=== PATIENT | female | born 1990 | race Caucasian/White ===

== ENCOUNTER 2021-05-18 09:19 | Emergency (ER) | payer OTHER ==
[2021-05-18] MEDS: Ondansetron 4 MG Tab.DIS PO ONE (10:00)
[2021-05-18] MEDS: Sodium Chloride 0.9% 1,000 ML IV ONE (10:03)
[2021-05-18] MEDS: Ondansetron 4 MG Tab.DIS ONE (10:03)
--- NOTE | 2021-05-18 10:10 | EDM.PDOC ---
ED HPI GENERAL MEDICAL PROBLEM - General Chief Complaint: Cardiovascular Problem Stated Complaint: CHEST HURT Time Seen by Provider: 05/18/21 09:45 Source of Information: Reports: Patient History Limitations: Reports: No Limitations - History of Present Illness INITIAL COMMENTS - FREE TEXT/NARRATIVE: 31-year-old female presents to the ED complaining of generalized illness/sinus infection with chest pain. Patient has been sick since Thursday running a fever nausea vomiting, fatigue. Patient became concerned when this morning she developed an acute dull substernal 2/10 chest discomfort. This started approximately 0600, and patient was concerned because she had hypertension at her doctor's appointment when she was diagnosed with sinus infection. Patient has been on amoxicillin for same. Positive for: Decreased oral intake, general malaise, headache, abdominal bloating on evening. Negative for: Shortness of breath, trauma, constipation/diarrhea, black tarry stool, blood on stool, changes in urine color smell frequency, swollen painful joints, difficulty swallowing, blurred vision, family history of cardiac at a young age. Middle Chest Pain Score (Numeric/FACES): 2 - Related Data Allergies Allergy/AdvReac Type Severity Reaction Status Date / Time No Known Allergies Allergy Verified 05/18/21 09:38 Home Meds: Home Meds Ondansetron [Zofran ODT] 4 mg PO Q6H PRN #5 tab.dis 05/18/21 [Rx] ED ROS GENERAL - Review of Systems Review Of Systems: Comprehensive ROS is negative, except as noted in HPI. ED EXAM, GENERAL - Physical Exam Exam: See Below Free Text/Narrative:: ABC intact. No apparent distress. No obvious trauma. Speaking in full sentences. Alert and oriented x3, GCS 456. Exam Limited By: No Limitations General Appearance: Alert, WD/WN, No Apparent Distress Eye Exam: Bilateral Eye: EOMI, PERRL Ears: Normal External Exam, Hearing Grossly Normal Nose: Normal Inspection, Normal Mucosa, No Blood Throat/Mouth: Normal Inspection, Normal Lips, Normal Teeth, Normal Gums, Normal Oropharynx, Normal Voice, No Airway Compromise Head: Atraumatic, Normocephalic Neck: Normal Inspection, Supple, Non-Tender, Full Range of Motion Respiratory/Chest: No Respiratory Distress, Lungs Clear, Normal Breath Sounds, No Accessory Muscle Use, Chest Non-Tender Cardiovascular: Normal Peripheral Pulses, Regular Rate, Rhythm, No Edema, No Gallop, No JVD, No Murmur, No Rub GI/Abdominal: Soft, Non-Tender, No Distention Back Exam: Normal Inspection, Full Range of Motion. No: CVA Tenderness (R), CVA Tenderness (L) Extremities: Normal Inspection, Normal Range of Motion, Non-Tender, Normal Capillary Refill, No Pedal Edema Neurological: Alert, Oriented, Normal Cognition Psychiatric: Normal Affect, Normal Mood Skin Exam: Warm, Dry, Intact, Normal Color, No Rash Lymphatic: No Adenopathy #1 Interpretation EKG Date: 05/18/21 (Normal sinus rhythm without ectopy, no ST elevation or depression, inverted T waves in V1, this is not a STEMI) Course - Vital Signs Last Recorded V/S: Last Vital Signs Temp 97.2 F 05/18/21 09:28 Pulse 103 H 05/18/21 09:28 Resp 18 05/18/21 09:28 BP 137/89 05/18/21 09:28 Pulse Ox 98 05/18/21 09:28 - Orders/Labs/Meds Orders: Active Orders 24 hr Category Date Time Status BASIC METABOLIC PANEL,BMP [CHEM] Stat Lab 05/18/21 09:50 Received TROPONIN I [CHEM] Stat Lab 05/18/21 09:50 Received Sodium Chloride 0.9% [Normal Saline] 1,000 ml Med 05/18/21 09:39 Active IV .BOLUS Medication Orders Sodium Chloride (Normal Saline) 1,000 mls @ 999 mls/hr IV .BOLUS ONE Stop: 05/18/21 10:39 Last Admin: 05/18/21 10:03 Dose: 999 mls/hr Documented by: JEANNA Labs: Laboratory Tests 05/18/21 Range/Units 09:50 WBC 6.8 (4.0-11.0) K/uL RBC 4.69 (3.80-5.80) M/uL Hgb 14.1 (11.5-16.5) g/dL Hct 40.2 (37.0-47.0) % MCV 86 (76-96) fL MCH 30.1 (27.0-32.0) pg MCHC 35.1 H (31.0-35.0) g/dL RDW 12.9 (11.0-16.0) % Plt Count 221 (150-500) K/uL MPV 9.4 (6.0-10.0) fL Neut % (Auto) 73.9 H (45.0-70.0) % Lymph % (Auto) 17.6 L (20.0-40.0) % [place] % (Auto) 8.1 (3.0-10.0) % Eos % (Auto) 0.3 L (1.0-5.0) % Baso % (Auto) 0.1 (0.0-0.5) % Neut # (Auto) 5.01 (2.00-7.50) K/uL Lymph # (Auto) 1.19 L (1.50-4.00) K/uL [place] # (Auto) 0.55 (0.20-0.80) K/uL Eos # (Auto) 0.02 L (0.04-0.40) K/uL Baso # (Auto) 0.01 L (0.02-0.10) K/uL Meds: Medications Generic Name Dose Route Start Last Admin Trade Name Freq PRN Reason Stop Dose Admin Sodium Chloride 1,000 mls @ 999 mls/hr 05/18/21 09:39 05/18/21 10:03 Normal Saline IV 05/18/21 10:39 999 mls/hr .BOLUS ONE Administration Discontinued Medications Generic Name Dose Route Start Last Admin Trade Name Freq PRN Reason Stop Dose Admin Ondansetron HCl 4 mg 05/18/21 09:59 05/18/21 10:00 Ondansetron 4 Mg Tab.Dis PO 05/18/21 10:00 4 mg ONETIME ONE Administration Ondansetron HCl Confirm 05/18/21 10:10 05/18/21 10:03 Ondansetron 4 Mg Tab.Dis Administered 05/18/21 10:11 Not Given Dose 4 mg .ROUTE .STK-MED ONE Departure - Departure Time of Disposition: 11:14 Disposition: Home, Self-Care 01 Condition: Good Clinical Impression: Viral illness Chest pain Qualifiers: Chest pain type: other chest pain Qualified Code(s): R07.89 - Other chest pain; R07.8 - Other chest pain Vomiting Qualifiers: Vomiting type: unspecified Nausea presence: with nausea Qualified Code(s): R 11.2 - Nausea with vomiting, unspecified Referrals: PCP,None [Primary Care Provider] - Sepsis Event Note (ED) - Evaluation Sepsis Screening Result: No Definite Risk - Focused Exam Vital Signs: Vital Signs Temp Pulse Resp BP Pulse Ox 05/18/21 09:28 97.2 F 103 H 18 137/89 98 - My Orders Last 24 Hours: My Active Orders 05/18/21 09:39 Sodium Chloride 0.9% [Normal Saline] 1,000 ml IV .BOLUS 05/18/21 09:50 BASIC METABOLIC PANEL,BMP [CHEM] Stat TROPONIN I [CHEM] Stat - Assessment/Plan Last 24 Hours: My Active Orders 05/18/21 09:39 Sodium Chloride 0.9% [Normal Saline] 1,000 ml IV .BOLUS 05/18/21 09:50 BASIC METABOLIC PANEL,BMP [CHEM] Stat TROPONIN I [CHEM] Stat Assessment:: 1. Chest pain 2. Sinusitis 3. Fatigue 4. Headache 5. Nausea vomiting Plan: 1. Chest pain-EKG, CBC, BMP, troponins (-) 2. Sinusitiscontinue antibiotic therapy 3. Fatigue-1000 cc normal saline, influenza screen 4. Headache-Tylenol, influenza screen 5. Nausea vomiting-Zofran 4 mg ODT, influenza screen, ambulatory order of Zofran from [facility] 31-year-old female who presents for evaluation of chest pain secondary to generalized illness since Thursday. The work-up in the ED is thus far negative. Differential diagnosis for chest pain is broad and includes life-threatening etiologies such as acute coronary syndrome, myocardial infarction, pulmonary embolism, acute aortic dissection, amongst others. Other causes may include pneumonia, pneumothorax, chest wall source, pericarditis, pleurisy, esophageal spasm. No serious etiologies for the chest pain were detected today during the visit. Work-up included troponin, CBC, EKG. Close follow-up with primary care is indicated should the pain continue, as further work-up may be performed; this was made clear to the patient who understands. No serial troponins due to lack of cardiac history and no familial history of early onset cardiac disease. No chest x-ray was done due to clear lung sounds, no shortness of breath. No D-dimer patient PERCs out. Influenza screen was negative, patient awaiting results of a Covid test from should have results today. -Patient and/or office services representative understood and agreed to treatment plan. -All questions were answered to the patient's satisfaction. -Patient is discharged in stable condition. Patient to return to the ED if symptoms increase/return. Follow-up with primary care provider within 2 weeks. Patient is most likely experiencing a viral syndrome, symptomatic/supportive care explained to patient to include getting lots of rest, brat diet, Pedialyte.
[2021-05-18] MEDS ORDERED: Acetaminophen 325 MG Tab PO ONE (10:16)
[2021-05-18] MEDS: Aspirin 325 MG Tab.EC PO ONE (10:27)
[2021-05-18] MEDS ORDERED: Ondansetron 4 MG Tab.DIS ONE (11:10)
== END 2021-05-18 11:16 | disposition home or self-care (01) ==
LOC: LB.ED 09:19
DX: R07.89 Other chest pain (principal); R11.2 Nausea with vomiting, unspecified; B34.9 Viral infection, unspecified
CPT/HCPCS: 36415; 80048; 84484; 85025; 87804; 93005; 99285; A9270; J7030

== ENCOUNTER 2024-05-08 15:29 | Emergency (ER) | payer OTHER | END 2024-05-08 16:28 | disposition home or self-care (01) | LOC: LB.ED 15:29 | DX: S46.912A Strain of unspecified muscle, fascia and tendon at shoulder and upper arm level, left arm, initial encounter (principal); W19.XXXA Unspecified fall, initial encounter; Y93.51 Activity, roller skating (inline) and skateboarding | CPT/HCPCS: 73030-LT; 99283 ==